=== PATIENT | female | born 1985 | race Caucasian/White ===

== ENCOUNTER 2016-07-03 15:44 | Emergency (ER) | payer OTHER ==
--- NOTE | ~2016-07-03 | CT4 ---
[facility] A Service of [facility] RADIOLOGY TEXT RESULTS PATIENT: ALEC LONDONO LOCATION: SED : 85 UNIT #: [id number] AGE: [address]: Roger Licona MD SEX: F ORDER DR: [id number] [place] [id number] E MR#: [id number] Acc #: [id number] NAME: ALEC LONDONO : 1985 SEX: F STUDY DATE/TIME: 07/03/2016 15:34 UNIT: SED ROOM: STUDY DESCRIPTION: CT Abd and Pelv Wo Cont Attending Physician: Roger Licona M.D. Ordering Physician: Roger Licona M.D. Primary Care Physician: No Primary Care Physician MEDICAL IMAGING REPORT This report is preliminary unless electronic signature is present. EXAM CT abdomen and pelvis 07/03/[address] abdomen and pelvis with multiplanar reformats. This CT exam was performed with one or more of the following radiation dose reduction techniques: automatic exposure control, adjustment of mA and/or kV according to patient size, and iterative reconstruction. COMPARISON 05/19/2014 HISTORY Left flank pain since about 01:00 p.m. today. FINDINGS The lung bases are normal. CT ABDOMEN: The liver and gallbladder and right kidney and both adrenal glands are normal but there is [id number] left hydronephrosis. The left ureter is dilated down into the pelvis, and there is a tiny calcification at the left ureterovesical junction measuring about 2 x 4 mm. No additional ureteral stones are seen and there are no renal stones on either side. The aorta is normal in caliber. There is otherwise no pelvic mass or inflammatory change or abnormal fluid collection. There is no hernia or bowel obstruction. The bony structures are normal. IMPRESSION [id number] hydronephrosis secondary to an approximately 2 x 4 mm [facility] A Service of [facility] RADIOLOGY TEXT RESULTS PATIENT: ALEC LONDONO LOCATION: SED : 85 UNIT #: [id number] AGE: [address]: Roger Licona MD SEX: F ORDER DR: calculus at the left ureterovesical junction. No additional renal or ureteral stones are seen on either side. Otherwise normal negative CT abdomen and pelvis without contrast. Dictated by... Chente Garcia M.D. THIS IS AN ELECTRONICALLY VERIFIED REPORT Chente Garcia M.D. at 07/10/2016 10:45 AM [facility] TD: 07/03/2016 17:34 JOB #: [id number] MEDICAL IMAGING REPORT Page 1 of 1
[2016-07-03 15:14] LABS: URINE SOURCE CLEAN CATCH
[2016-07-03 15:15] LABS: BASOPHIL# 0.1 X10e3 (0-0.3); BASOPHIL% 0.4 % (0-2.5); EOSINOPHIL# 0.2 X10e3 (0-0.7); EOSINOPHIL% 1.4 % (0.0-7.0); HEMATOCRIT 47.4 % (35.0-45.0); HEMOGLOBIN 16.3 gm/dL (12.0-16.0); LYMPHOCYTE# 3.9 X10e3 (1.0-3.5); LYMPHOCYTE% 28.6 % (17.0-45.0); MEAN CELL VOLUME 92.6 FL (83-96); MEAN CORPUSCULAR HEMOGLOBIN 31.8 PG (28-34); MEAN CORPUSCULAR HGB CONC 34.4 g/dL (30-36); MEAN PLATELET VOLUME 9.4 FL (6.5-11.5); MONOCYTE# 1.1 X10e3 (0-1.0); MONOCYTE% 7.8 % (3.0-12.0); NEUTROPHIL# 8.5 X10e3 (1.5-7.1); NEUTROPHIL% 61.8 % (40-75); PLATELET COUNT 285 X10e3 (140-420); RED BLOOD COUNT 5.12 X10e (3.90-5.30); RED CELL DISTRIBUTION WIDTH 12.9 % (11.0-15.5); WHITE BLOOD COUNT 13.7 X10e3 (4.0-10.5)
[2016-07-03 15:17] LABS: URINE APPEARANCE CLOUDY; URINE BILIRUBIN NEG (NEG); URINE BLOOD 3+ (NEG); URINE COLOR YELLOW; URINE GLUCOSE NEG (NORM); URINE KETONE TRACE (NEG); URINE LEUKOCYTE ESTERASE TRACE (NEG); URINE NITRATE POS (NEG); URINE PH 5.5 (5-8); URINE PROTEIN 1+ (NEG); URINE SPECIFIC GRAVITY >=1.030 (1.003-1.035)
[2016-07-03 15:25] LABS: DIFF IND NO
[2016-07-03 15:26] LABS: AMPHETAMINE POS (NEG); BARBITURATES NEG (NEG); BENZODIAZEPINES NEG (NEG); COCAINE NEG (NEG); MARIJUANA POS (NEG); MICRO INDICATED? YES; OPIATES NEG (NEG); TRICYCLIC ANTIDEPRESSANTS NEG (NEG); U METHADONE NEG (NEG)
[2016-07-03 15:31] LABS: BUN/CREATININE RATIO 14.44; CALCIUM SERUM 9.1 mg/dL (8.4-10.2); CREATININE SERUM 0.9 mg/dL (0.6-1.4); GLOM FILT RATE Estimated 85.9 mL/min (>60); POTASSIUM 3.9 mmol/L (3.5-5.1)
[~2016-07-03 15:44] MED LIST: ALEVE220 M1; AMOXICILLIN PO; AMOXICILLIN500 M1 PO; AMOXIL500 MG PO; BACTRIM DS TABL1 TA1 PO; BACTRIM DS TABL1 TA2 PO; BACTROBAN15 GM TOP; CIPRO HC OTIC S10 ML OT; CIPRO PO; CIPRO250 MG PO; CLARITIN10 MG PO; COMPAZINE10 MG PO; DICLOFENAC PO; EFFEXOR37.5 MG PO; FAMOTIDINE PO; FLAGYL PO; FLEXERIL10 MG PO; FLINTSTONES T100 MCG PO; FOLIC ACID1 MG PO; HYDROCODONE PO; IBUPROFEN800 MG PO; IMITREX25 MG DOB; IRON1 TA1 PO; MEDROL DOSEPAK4 MG PO; MOBIC PO; NAPROXEN; NO MEDICATIONS; NORFLEX100 M1 PO; PHENERGAN25 MG PO; PRENATAL1 TA1 PO; REQUIP3 MG; ROBITUSSIN A-C-S1 ML PO; TESSALON200 MG PO; TYLENOL #3 PO; VICODIN 5/1 TAB 5/50 PO; VOLTAREN50 MG PO; ZANTAC300 MG PO; ZITHROMAX PO
[2016-07-03 15:52] LABS: CULTURE INDICATED? YES; URINE BACTERIA 1+ (NEG); URINE RBC 200-300 /[HPF] (0-2); URINE SQUAMOUS EPITHELIAL CELL OCCAS /[HPF]
== END 2016-07-03 16:36 | disposition home or self-care (01) ==
LOC: SED 15:44
PROVIDERS: Emergency Medicine
DX: N20.1 Calculus of ureter (principal); N30.91 Cystitis, unspecified with hematuria; F17.200 Nicotine dependence, unspecified, uncomplicated; Z88.8 Allergy status to other drugs, medicaments and biological substances
CPT/HCPCS: 36415; 74176; 80048; 80307; 81003; 84703; 85025; 87086; 96374; 96375; 99284; J0696; J1885; J2405

== ENCOUNTER 2016-09-13 12:57 | Emergency (ER) | payer OTHER | END 2016-09-13 14:05 | disposition home or self-care (01) | LOC: SED 12:57 | DX: L03.811 Cellulitis of head [any part, except face] (principal); F17.210 Nicotine dependence, cigarettes, uncomplicated; Z88.8 Allergy status to other drugs, medicaments and biological substances | CPT/HCPCS: 99282 ==

== ENCOUNTER 2016-09-16 18:45 | Emergency (ER) | payer OTHER ==
[~2016-09-16] VITALS: Ht 170.2 cm; Wt 68.0 kg
== END 2016-09-16 20:33 | disposition home or self-care (01) ==
LOC: CED 18:45 → CFTX 18:45
DX: L02.811 Cutaneous abscess of head [any part, except face] (principal); L73.9 Follicular disorder, unspecified; F17.200 Nicotine dependence, unspecified, uncomplicated; Z88.8 Allergy status to other drugs, medicaments and biological substances
CPT/HCPCS: 99283